=== PATIENT | male | born 1995 | race Caucasian/White ===

== ENCOUNTER 2021-01-09 14:16 | Emergency (ER) | payer OTHER, SELFPAY ==
--- NOTE | ~2021-01-09 | XR_ITS ---
EXAMINATION: XR foot RT min 3V DATE: 01/09/2021 15:10 INDICATION: Right foot injury. TECHNIQUE: 4 views of right foot were obtained. COMPARISON: None. FINDINGS: Bone alignment is normal. There is a nondisplaced comminuted intra-articular fracture of ba se of first distal phalanx. Joint spaces are normal. IMPRESSION: 1. Nondisplaced comminuted intra-articular fracture of base of first distal phalanx. Reviewed, dictated and finalized at location A. IMPRESSION: 1. Nondisplaced comminuted intra-articular fracture of base of first distal pha lanx.
[2021-01-09 14:30] VITALS: BP 152/95; PULSE 88; RESP 16; TEMP 37.1; O2SAT 98
--- NOTE | 2021-01-09 15:27 | ED.LOWEXIN ---
HPI - Extremity Injury (Lower) General Chief Complaint: Extremity Injury, Lower Stated Complaint: Extremity Injury, Lower Time Seen by Provider: 01/09/21 15:10 Source: patient, RN notes reviewed and old records reviewed Mode of arrival: ambulatory Limitations: no limitations History of Present Illness HPI Narrative: 25 year old male who presents to [facility] care with complaints of injury 2 days ago to his right great toe after he was stepped on by his horse. Patient states that pain to his right great toe is 8/10 and describes it as sharp and it is increased by weight bearing on his toe. Patient has superficial abrasion to the dorsal aspect of his mid right great toe with obvious swelling of his toe, denies any tingling or numbness to his toe, with brisk capillary refill noted to nail with no injury noted, strong pedal and posterior tibial pulses to his right foot. complaint: foot injury (great right toe) Onset (ago): day(s) (2) Injury: Right: toes (right great toe) Type of Injury: other (crush) Place: street/outdoors Severity: severe Severity scale (1-10): 8 Relieving factors: nothing Exacerbating factors: weight bearing Context: other (stepped on by horse) Associated symptoms: swelling Other symptoms: none Treatments prior to arrival: NSAIDS Related Data Allergies Allergy/AdvReac Type Severity Reaction Status Date / Time No Known Allergies Allergy Unverified 12/31/18 14:21 Review of Systems Review of Systems: Narrative: CONSTITUTIONAL: Denies fever, chills, or sweats. EYES: Denies visual changes, redness, or discharge. ENT: Denies rhinorrhea, congestion, sore throat, or otalgia. CARDIOVASCULAR: Denies chest pain, palpitations, or edema. RESPIRATORY: Denies cough or dyspnea. GASTROINTESTINAL: Denies abdominal pain, nausea, vomiting, or diarrhea. GENITOURINARY: Denies dysuria or hematuria. SKIN: Denies rash or itching.superficial abrasion to dorsal aspect of his right great toe, no nail injury MUSCULOSKELETAL: Denies back pain,positive for pain and swelling to his right great toe fro injury, or myalgia. NEUROLOGIC: Denies headache, numbness, or weakness. PSYCHIATRIC: Denies anxiety or depression. All systems reviewed & are unremarkable except as noted in HPI and below [facility] Past Medical History Medical History (Updated 01/14/21 @ 13:59 by Celia Blevins NP) Fracture of left upper extremity Surgical History Surgical History (Updated 01/14/21 @ 13:59 by Celia Blevins NP) No history of previous surgery Family History Family History (Updated 01/09/21 @ 15:46 by Celia Blevins NP) Father Heart disease Social History Social History (Updated 01/09/21 @ 15:47 by Celia Blevins NP) Smoking status: Never smoker Alcohol intake: current Alcohol use details: social Substance use: never Living arrangements: with family Gender identity (if verbalized by the patient): Male Comments At time of signature, agree with nursing past medical, surgical, social and family history. There is no relevant family history pertinent to the presenting complaint Exam Narrative: Exam Narrative: GENERAL: Well-appearing, well-nourished, and in no acute distress. HEAD: Normocephalic, atraumatic. EYES: PERRLA and EOMI. ENT: Nares clear, no rhinorrhea or epistaxis. Mucous membranes moist.TM's normal with good light reflex, throat has no swelling redness or exudates. NECK: Supple.no lymphadenopathy CHEST: Clear to auscultation. No respiratory distress.SAO2 98% on room air HEART: Regular rate and rhythm. No murmur heard. Normal peripheral pulses. ABDOMEN: Soft, nontender, nondistended, normal active bowel sounds. EXTREMITIES: Normal range of motion with exception to right great toe which is painful from injury of being stepped on by horse, Right great toe is swollen with pain to right great toe, no injury to nail bed noted, has superficial abrasion to mid dorsal toe. Patient denies any tingling or numbness to his ri
--- NOTE | 2021-01-09 16:11 | PC.NURSE ---
USED A METAL THUMB SPLINT FOR BIG TOE, OK PER PROVIDER.
== END 2021-01-09 16:00 | disposition home or self-care (01) ==
PROVIDERS: Emergency Provider Registered Nurse; PCP Family Medicine
DX: S92.424A Nondisplaced fracture of distal phalanx of right great toe, initial encounter for closed fracture (principal); X58.XXXA Exposure to other specified factors, initial encounter
CPT/HCPCS: 29130; 73630; 99214; G0463

== ENCOUNTER 2022-07-27 13:20 | Emergency (ER) | payer OTHER, SELFPAY ==
--- NOTE | ~2022-07-27 | XR_ITS ---
EXAMINATION: XR finger 1st RT min 2V DATE: 07/27/2022 13:47 INDICATION: Possible metallic foreign body at the distal tip at the right thumb TECHNIQUE: Dorsal palmar, lateral and oblique views of the right first digit were obtained COMPARISON: None FINDINGS: Alignment is normal. No fracture. Joint spaces are normal. Soft tissues are unremarkable. No radiopaq ue foreign bodies. IMPRESSION: 1. Negative right thumb radiographs. Reviewed, dictated and finalized at location B.
[2022-07-27 13:26] VITALS: BP 151/99; PULSE 66; RESP 18; TEMP 36.9; O2SAT 98
[2022-07-27 13:31] VITALS: BP 151/99; PULSE 66; RESP 18; TEMP 36.9; O2SAT 98
--- NOTE | 2022-07-27 13:33 | ED.SKABFB ---
HPI - Skin/Abscess/Foreign Bdy General Chief complaint: Skin/Abscess/Foreign Body Stated complaint: Foreign Body In Right Thumb Time Seen by Provider: 07/27/22 13:38 Source: patient Mode of arrival: ambulatory Limitations: no limitations History of Present Illness HPI narrative: 27 y/o male presented for c/o 'piece of metal in right thumb' for about 4 days. Endorses pain to the site. No redness, swelling, drainage or fever. Related Data Allergies Allergy/AdvReac Type Severity Reaction Status Date / Time No Known Allergies Allergy Verified 07/27/22 13:31 Review of Systems Review of Systems: CONSTITUTIONAL: Denies body aches, fever, chills, or sweats. EYES: Denies visual changes, redness, or discharge. CARDIOVASCULAR: Denies chest pain, palpitations, or edema. RESPIRATORY: Denies cough or dyspnea. SKIN: reports right thumb tip with metal fb MUSCULOSKELETAL: Denies back pain, joint pain, or myalgia. NEUROLOGIC: Denies headache, numbness, tingling, or weakness. [facility] Past Medical History Medical History Fracture of left upper extremity Surgical History Surgical History No history of previous surgery Family History Family History Father Heart disease Social History Social History Smoking status: Never smoker Alcohol intake: current Alcohol use details: social Substance use: never Gender identity (if verbalized by the patient): Male Comments At time of signature, I have reviewed and agree with nursing past medical, surgical, social and family history unless otherwise noted. Please see nursing chart for further information. There is no relevant family history pertinent to the presenting complaint Exam Narrative: GENERAL: Well-appearing HEAD: Normocephalic, atraumatic. EYES: conjunctivae clear, and EOMI. ENT: Mucous membranes moist. NECK: Supple. No lymphadenopathy CHEST: Clear to auscultation. HEART: Regular rate and rhythm. SKIN: Warm, dry. right distal tip of thumb with approx 2mm diameter avulsed skin, no palpable FB. No swelling, redness, fluctuance or drainage. NEURO: Alert and oriented x3. Course Course Emergency Course: Patient is aware of diagnosis, understands and agrees to treatment plan. Anticipatory guidance given. Patient agrees to follow-up as directed and is aware of reasons to seek care at the emergency department. Portions of this record may have been created with voice recognition software Level of Care: Express Care Visit Vital Signs Vital signs: Vital Signs Temperature 98.4 F 07/27/22 13:26 Pulse Rate 66 07/27/22 13:26 Respiratory Rate 18 07/27/22 13:26 Blood Pressure 151/99 H 07/27/22 13:26 Pulse Oximetry 98 07/27/22 13:26 Oxygen Delivery Room Air 07/27/22 13:26 Temperature 98.4 F 07/27/22 13:31 Pulse Rate 66 07/27/22 13:31 Respiratory Rate 18 07/27/22 13:31 Blood Pressure 151/99 H 07/27/22 13:31 Pulse Oximetry 98 07/27/22 13:31 Oxygen Delivery Room Air 07/27/22 13:31 Reviewed MDM - Skin/Abscess/Foreign Bdy MDM Narrative Medical decision making narrative: Wound cleansed, no apparent FB on exam. Xray showed no FB. Reviewed results with pt. Advised we will not attempt removal due to results of xray. Suspect likely puncture wound. Advised supportive measures and signs/symptoms to go to the ER. Pt is appropriate for outpt treatment and f/u with pcp. Tetanus updated. Instructed patient to go to nearest ER immediately for any worsening symptoms including but not limited to: fever, pain, pus/drainage, swelling or any symptoms concerning to the patient. Differential Diagnosis Differential diagnosis: Likely abscess of skin or subcutaneous tissue, urticaria, herpes zoster, cellulitis and contact
[2022-07-27] MEDS: TETANUS,DIPHTHERIA,AC PERTUSSIS ADULT (0.5 ML) BOOSTRIX IM (14:14)
== END 2022-07-27 14:10 | disposition home or self-care (01) ==
PROVIDERS: Emergency Provider Nurse Practitioner Family; PCP Family Medicine
DX: M79.644 Pain in right finger(s) (principal); Z23 Encounter for immunization
CPT/HCPCS: 73140; 90471; 90715; 99213; G0463